=== PATIENT | male | born 1975 | race Caucasian/White ===

== ENCOUNTER 2021-05-29 14:20 | Outpatient (CLI) | payer OTHER ==
[2021-05-30 22:00] VITALS: BP 136/72
--- NOTE | 2021-05-30 22:00 | SLEEP CARE CONSULTATION ---
Information from patient questionnaire entered by Olga Lidia Burgos MA. I have reviewed and concur with the information entered by Olga Lidia Burgos MA. This document represents the service I personally performed and the decisions made by me, Idris Mcdowell MD, [facility]. History of Present Illness Service Date and Time: 05/29/2021 1420 Reason for Visit: New patient (ONSET 05/2018) Chief Complaint: reports: Unrefreshed sleep, Snoring, Frequent awakenings at night Date of Onset: 3-4 YEARS Usual bedtime: 9:00-10:00 PM Time it takes to fall asleep: 15 MINUTES TO 2 HOURS Snores at night: Yes Observed to quit breathing while asleep: No Sleeps alone due to snoring: No Number of times waking at night: 2-3 Reasons for waking at night: reports: Bathroom, Other Toss, Turn, or Twitch while sleeping: Yes Recalls having dreams: Yes Usually gets out of bed at: 0600 Feels refreshed in the morning: No Morning headache: Yes Sleepy or fatigued during the day: Yes Ever fallen asleep while driving: No Takes day naps: Yes Dreams during day naps: Yes Prior sleep studies: No Additional HPI information: I had the pleasure of seeing Mr. Ramirez today regarding the possibility of him having a sleep disorder. As you know, he is a 45 year old gentleman who complains of frequent awakenings, unrefreshed sleep, and loud snore for about 3 4 years. The patient tells me that he normally goes to bed around 9 - 10 pm, and it takes him approximately 15 - 120 minutes to fall asleep. He has been told that he snores loudly and irregularly at night. He has never been observed to stop breathing in his sleep. His can still sleep in the same bed. He can recall waking up on the average of 2 - 3 times during the night. Most of the time he wakes up because of having to use the bathroom. He has awakened occasionally because of his own snoring, choking, and having to gasp for air. There is a lot of tossing and turning in his sleep. No somniloquy (sleep talking) or somnambulism (sleep walking). Generally, he can recall having dreams. In the morning he usually gets up out of the bed around 6 a.m. not feeling refreshed nor rested. He occasionally has a morning headache that goes away within an hour of awakening. During the day he complains of feeling sleepy and fatigued. His score on [place] Sleepiness Scale is 7 out of 24. He never has fallen asleep while driving nor has had any accident due to sleepiness. He usually takes naps during the day. He has never had sleep paralysis, experienced cataplexy but reports symptoms of restless leg syndrome. He reports having impaired concentration during the day. - Parasomnia Symptoms Ever been unable to move upon waking from sleep: No Walks in sleep: No Talks in sleep: No Ever acted out dreams in sleep: No Ever felt weak in the knees when startled or emotional: No Bothered by creepy, crawly, restless sensations in legs: Yes Problems with memory or concentration: Yes Subjective Initial [place] Sleepiness Scale score: 7 (2021) Social History The patient's occupation is a AM. Patient is and lives in [place]. Have you smoked in the past 12 months: Yes Cigarettes per day (20/pack): 3 Years of smokin Quit date: 2000 Smoking Pack Years: 1.0 Alcohol use: Yes Alcohol amount and frequency: 2 X DAILY Caffeine use: Yes Caffeine amount and frequency: 2 X DAILY Family History Family Hx Sleep Apnea: Mother: Snoring, Sleep apnea - Treated, Father: Snoring, Sleep apnea - Treated, Sleep apnea - Untreated Allergies and Home Medications Known drug allergies: No Drug allergies reviewed: Yes Home medication list reviewed: Yes Review of Systems Cardiovascular: denies: high blood pressure, palpitations, chest pain, irregular heart rate or pulse, leg or foot swelling, have to sleep sitting up, other Respiratory: denies: shortness of breath, wheeze, sputum production, chronic cough, other Gastrointestinal: denies: heartburn, difficulty swallowing, nausea, vomitting, diarrhea, abdominal pain, other Urinary: denies: incontinence, frequency, urgency, impotence, other Neurological: denies: headaches, seizure, head trauma, disorientation, speech dysfunction, gait or balance problems, fainting or unconsciousness, other Psychiatric: reports: anxiety Ear/Nose/Throat: reports: injury to nose, wisdom teeth removed Endocrine: reports: sluggishness, too hot or cold Musculoskeletal: reports: joint pain, neck pain Immunologic: reports: rash, itching Physical Exam Vital signs obtained and entered by: ROSALIA CONTRERAS Blood Pressure: 136/72 (LEFT) Cuff size: wrist Heart Rate: 72 O2 Saturation: 97 (WITH MASK) Height: 5 ft 9 in Weight: 228 lb Body Mass Index: 33.6 BMI Classification: Obese Impression and Plan IMPRESSION: 1. Obstructive Sleep Apnea-Hypopnea Syndrome, as suggested by history of loud and irregular snoring, frequent awakenings during the night, unrefreshed sleep, morning headache, cognitive impairment, and daytime hypersomnolence. Narrow oropharynx and obesity are common predisposing factors for obstructive sleep apnea-hypopnea syndrome. I recommend proceeding to polysomnography to confirm the diagnosis and to assess severity. If he has significant sleep disordered breathing, a manual CPAP titration study will also be performed to find the optimal treatment pressure. I informed the patient of what the sleep studies involve and after some discussion, he agreed to proceed. Plan: 1. Schedule polysomnography + manual CPAP titration study and return in 1 to 2 weeks after the study to discuss result and initiate therapy. 2. Avoid long distance driving or when feeling sleepy. 3. Avoid alcohol, sedative and muscle relaxant around bedtime. 4. Attempt to lose weight. Counseling Topics: Weight control Follow up with Sleep Care in: 1-2 months Visit Type: In Office Time Spent with Patient (minutes): 15 Provider Statement: I spent 100% of the Face to Face Visit with the patient with greater than 50% spent counseling the patient and coordination of care.
== END 2021-05-29 14:21 | disposition home or self-care (01) ==
LOC: SC 14:20
PROVIDERS: ATTEND Internal Medicine Pulmonary Disease
DX: R06.83 Snoring (principal); G47.8 Other sleep disorders; R51.9 Headache, unspecified; R41.89 Other symptoms and signs involving cognitive functions and awareness; Z72.0 Tobacco use; E66.9 Obesity, unspecified; Z68.33 Body mass index [BMI] 33.0-33.9, adult
CPT/HCPCS: 99202; 99212

== ENCOUNTER 2021-08-09 20:42 | Outpatient (CLI) | payer OTHER | END 2021-08-09 20:43 | disposition home or self-care (01) | LOC: SC 20:42 | PROVIDERS: ATTEND Internal Medicine Pulmonary Disease | DX: G47.33 Obstructive sleep apnea (adult) (pediatric) (principal) | CPT/HCPCS: 95810 ==

== ENCOUNTER 2021-09-04 11:10 | Outpatient (CLI) | payer OTHER ==
--- NOTE | 2021-09-04 11:54 | SLEEP CARE CONSULTATION ---
Information from patient questionnaire entered by Olga Lidia Burgos MA. I have reviewed and concur with the information entered by Olga Lidia Burgos MA. This document represents the service I personally performed and the decisions made by me, Idris Mcdowell MD, [facility]. History of Present Illness Service Date and Time: 09/04/2021 1110 Initial [place] Sleepiness Scale score: 7 (2021) Current [place] Sleepiness Scale score: 5 (09/15) Additional HPI information: Mr. Ramirez returned for follow up of the sleep study he had on 08/09/2021. The polysomnography showed that the patient had normal sleep efficiency. The sleep architecture was relatively normal as well considering the first night effect. Respiratory monitoring showed mild obstructive sleep apnea-hypopnea (AHI = 6.4) associated with oxyhemoglobin desaturation and mild hypoxia (justin oxygen saturation of 87%). The respiratory events occurred almost exclusively during supine REM sleep (supine AHI = 7.6; non-supine = 1.50). Snore was moderate in intensity. There was no significant periodic leg movement of sleep. Cardiac rhythm was normal sinus rhythm without significant arrhythmia. No abnormal behavior (parasomnia) observed during the night. The patient was informed of these findings. I explained to him the pathophysiology behind obstructive sleep apnea. We then spent quite a bit of time discussing different treatment options. For mild obstructive sleep apnea, surgery and oral appliance are alternatives to nasal CPAP therapy but in moderate or severe cases, nasal CPAP is the most effective and reliable treatme nt. Weight loss in an obese individual is strongly recommended. After some discussion, he opted to go with the nasal CPAP therapy. I explained to him how CPAP machine works and what to expect when using the machine. He is encouraged to use CPAP every night especially in the first 2 to 3 nights in order to get used to it. He should call his CPAP supplier or me to discuss any mechanical problem that may occur. If he snores or feels like he is not getting enough air from the machine, he should notify me and I will increase the pressure. Sleep Study - Results Type of Sleep Study: Polysomnography (F/U POLY, 08/09/21 [facility],) Prior sleep studies: No Allergies and Home Medications Known drug allergies: Yes Drug allergies reviewed: Yes (MOPROXIN) Home medication list reviewed: Yes (SPRAINED WRIST) Physical Exam Vital signs obtained and entered by: ROSALIA CONTRERAS Blood Pressure: 128/76 (PULSE 69, RIGHT, RESP 16,) Cuff size: wrist Heart Rate: 69 O2 Saturation: 98 (PAPER MASK) Height: 5 ft 9 in Weight: 225 lb (W BOOTS N UNIFORM) Body Mass Index: 33.2 BMI Classification: Obese Impression and Plan IMPRESSION: 1. Obstructive Sleep Apnea-Hypopnea Syndrome, mild, associated with mild hypoxemia. Possibly, this is the cause of the patients symptoms of frequent awakenings during the night, unrefreshed sleep, morning headache, cognitive impairment, and daytime hypersomnolence. As mentioned above, the patient will be started on CPAP set at 5 - 15 cmH2O. Depending on his response and compliance he may be brought back for an overnight CPAP titration study. PLAN: 1. Prescription made for an autoCPAP, heated humidifier, and related supplies. 2. Attempt to lose weight and avoid alcohol consumption near bedtime. 3. The patient is again cautioned about driving until his sleepiness completely resolves on the CPAP therapy. 4. Return for follow up after one month of using the CPAP. Mask provided: No Follow up with Sleep Care in: 1-2 months Visit Type: In Office Time Spent with Patient (minutes): 15 Provider Statement: I spent 100% of the Face to Face Visit with the patient with greater than 50% spent counseling the patient and coordination of care.
[2021-09-04 11:55] VITALS: BP 128/76
== END 2021-09-04 11:11 | disposition home or self-care (01) ==
LOC: SC 11:10
PROVIDERS: ATTEND Internal Medicine Pulmonary Disease
DX: G47.33 Obstructive sleep apnea (adult) (pediatric) (principal); R09.02 Hypoxemia; E66.9 Obesity, unspecified; Z68.33 Body mass index [BMI] 33.0-33.9, adult
CPT/HCPCS: 99212

== ENCOUNTER 2021-10-04 06:41 | Outpatient (CLI) | payer OTHER ==
--- NOTE | 2021-10-04 16:45 | MRI Report ---
PROCEDURE: Cervical Spine W/O INDICATIONS: PARESTHESIA TECHNIQUE: Noncontrast sagittal T1 spin echo and T2 fast spin echo, sagittal STIR, foraminal oblique sagittal T2 fast spin echo, and axial gradient echo or T2 fast spin echo through the cervical spine. COMPARISON: None. FINDINGS: Image quality: Excellent. Alignment and Curvature: There is normal bony alignment. Bone Marrow: Marrow demonstrates normal overall signal. Spinal Cord: Visualized spinal cord has normal signal. There is an overall appearance of mild diffu se stenosis. No cerebellar tonsillar herniation. Paraspinous Soft Tissues: No paravertebral masses. Prevertebral soft tissues are normal in thicknes s. C2-C3: No disc bulge or foraminal narrowing. Mild spinal stenosis. C3-C4: No disc bulge with mild spinal stenosis. Mild left and minimal right foraminal narrowing wit h uncovertebral hypertrophy. C4-C5: Minimal disc bulge with mild spinal stenosis. [id number] left and mild right foraminal narrowing. C5-C6: Mild disc bulge with mild to moderate spinal stenosis. [id number] bilateral foraminal n arrowing. C6-C7: Mild disc bulge with [id number] spinal stenosis. Mild left and minimal right foraminal narrowing. C7-T1: No disc bulge. Mild spinal stenosis. No foraminal narrowing. IMPRESSION: Multilevel spinal stenosis. 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 Multilevel minimal to mild disc bulges. Multilevel overall mild to moderate bilateral foraminal narrowing. Reviewed by: Mireya Bloom MD on 10/04/2021 4:44 PM PDT Approved by: Mireya Bloom MD on 10/04/2021 4:44 PM PDT Station ID: [id number]
== END 2021-10-04 06:42 | disposition home or self-care (01) ==
LOC: DI 06:41
PROVIDERS: ATTEND Internal Medicine
DX: M47.812 Spondylosis without myelopathy or radiculopathy, cervical region (principal); M48.02 Spinal stenosis, cervical region